=== PATIENT | female | born 1965 | race Caucasian/White ===

== ENCOUNTER 2023-07-25 19:03 | Emergency (ER) | payer BC ==
[~2023-07-25 19:03] MED LIST: Iopamidol-370 76% 500 ML MDV (1 ML CHARGE) ONE
[2023-07-25 20:09] LABS: #Basophils 0.1 thou/uL (0.0-0.2); #Eosinphils 0.2 thou/uL (0.0-0.7); #Monocytes 0.5 thou/uL (0.11-0.59); #Neutrophils 4.6 thou/uL (1.40-6.50); %Basophils 0.8 % (0.0-1.0); %Eosinophils 2.3 % (0.0-10.0); %Monocytes 7.2 % (0.0-10.0); %Neutrophils 71.5 % (42.0-75.0); Hematocrit 40.3 % (36.0-47.0); Hemoglobin 13.4 g/dL (12.0-16.0); Mean Corpuscular HGB CONC 33.3 g/dL (32.0-36.0); Mean Corpuscular Hemoglobin 30.5 pg (27.0-31.0); Mean Corpuscular Volume 91.8 fl (78.0-98.0); Mean Platelet Volume 10.2 fL (7.4-10.4); Platelet Count 247 10x3/uL (130-400); Red Blood Cell (RBC) Count 4.39 mill/uL (4.20-5.40); White Blood Cell (WBC) Count 6.5 10x3/uL (4.8-10.8)
[2023-07-25 20:29] LABS: ALT (SGPT) 13 U/L (8-55); AST (SGOT) 20 U/L (5-34); Alkaline Phosphatase 46 U/L (40-110); Anion Gap 12 mmol/L (10-20); BUN (Urea Nitrogen) 21 mg/dL (9.8-20.1); Bilirubin, Total 0.2 mg/dL (0.2-1.2); Calc. Creatinine Clearance 0 mL/min (70-130); Calcium 10.2 mg/dL (7.8-10.44); Carbon Dioxide 27 mmol/L (22-29); Chloride 103 mmol/L (98-107); Estimated GFR 71; Globulin 2.4 g/dL (2.4-3.5); Glucose 107 mg/dL (70-105); Lipase 25 U/L (8-78); Potassium 4.3 mmol/L (3.5-5.1); Protein, Total 7.4 g/dL (6.0-8.3); Sodium 138 mmol/L (136-145)
[2023-07-25 20:33] LABS: Bacteria/HPF None Seen HPF (None Seen); Bilirubin Negative (Negative); Blood, Urine 1+ (Negative); CAUTI Indications for Culture Pelvic or flank pain; Clarity Clear (Clear); Glucose, Urine (Dipstick) Normal (Negative); Ketone, Urine Negative (Negative); Leukocyte Negative Leu/uL (Negative); Nitrite Negative (Negative); Protein, Urine (Dipstick) Negative (Neg-Trace); RBC/HPF 0-3 HPF (0-3); Specific Gravity, Urine 1.003 (1.002-1.036); Squamous Epithelial None Seen HPF (0-3); Urobilinogen Normal mg/dL (Less than 2); WBC/HPF None Seen HPF (0-3); pH, Urine 6.5 (5.0-9.0)
[2023-07-25 20:38] LABS: Troponin I Less than 0.010 ng/mL (< 0.028)
[2023-07-25] MEDS ORDERED: Magnesium 2 GM/50 ML BAG (IN WATER) ONE (20:42)
[2023-07-25] MEDS ORDERED: Ondansetron PF 4 MG/2 ML Vial ONE (20:42)
[2023-07-25 20:45] LABS: Urine Culture Reflex No No
== END 2023-07-25 23:20 | disposition home or self-care (01) ==
LOC: ERS 19:03
DX: R00.1 Bradycardia, unspecified (principal); E03.9 Hypothyroidism, unspecified
CPT/HCPCS: 36415; 70496; 70498; 71045; 80053; 81001; 83690; 84439; 84443; 84484; 85025; 93005; 96365; 96375; J2405; J3475; Q9967

== ENCOUNTER 2023-10-14 08:02 | Outpatient (CLI) | payer BC ==
[2023-10-14] MEDS ORDERED: Magnevist 469MG/ML 20 ML VIAL ONE (13:56)
== END 2023-10-14 08:03 | disposition home or self-care (01) ==
LOC: MRI 08:02
PROVIDERS: ATTEND Otolaryngology Otolaryngic Allergy
DX: H91.8X3 Other specified hearing loss, bilateral (principal)
CPT/HCPCS: 70553; A9579